=== PATIENT | female | born 1975 | race Caucasian/White ===

== ENCOUNTER 2016-10-23 22:36 | Emergency (ER) | payer MEDICAID ==
[2016-10-23] MEDS ORDERED: DEXAMETHASONE SOD PHOSPHATE 10MG/ML VIAL PO ONE (22:59)
[2016-10-23] MEDS ORDERED: FAMOTIDINE 20MG TABLET PO ONE (23:03)
--- NOTE | 2016-10-23 23:04 | Emergency Department Record ---
History of Present Illness - General Chief complaint: Allergic Reaction Stated complaint: ALLERGIC REACTION Time Seen by Provider: 10/23/16 22:59 Source: Patient Mode of Arrival: Ambulatory Limitations: No limitations - History of Present Illness Initial Comments: 41 yo female presents to ED with a CC of a possible allergic reaction to her chest and back after using a newer perfume 2 days ago. Patient reports itching/ burning rash to the chest and back, denies throat swelling, wheezing, or difficulty breathing. Patient denies health problems at her baseline. MD Complaint: Allergic reaction Onset/Timin -: Days(s) Exposure: Other (perfume) Symptoms: Itching, Rash Severity: Moderate Treatment Prior to Arrival: Benadryl Previous Allergy History: Other - Related Data Home Medications Medication Instructions Recorded Confirmed Last Taken Hydrocodone/Acetaminophen [[place] 1 tab PO Q8H PRN 10/23/16 10/23/16 10/23/16 10mg/325mg] Ibuprofen [Motrin] 800 mg PO Q8H PRN 10/23/16 10/23/16 10/23/16 Previous Rx's Medication Instructions Recorded Dexamethasone Sod Phos 10Mg/ml 10 mg PO DAILY #4 vial 10/23/16 [Decadron] Famotidine [Pepcid] 40 mg PO DAILY #5 tablet 10/23/16 Allergies Allergy/AdvReac Type Severity Reaction Status Date / Time prednisone [PREDNISONE] Allergy Unknown HIVES Verified 02/24/15 12:45 Review of Systems Constitutional: Denies: Chills, Fever, Malaise, Night sweats Eyes: Denies: Eye discharge, Eye pain ENT: Denies: Congestion, Ear pain, Epistaxis Respiratory: Denies: Cough, Dyspnea Cardiovascular: Denies: Chest pain, Dyspnea on exertion, Palpitations Endocrine: Denies: Fatigue, Heat or cold intolerance Gastrointestinal: Denies: Abdominal pain, Nausea, Vomiting Genitourinary: Denies: Incontinence, Retention Musculoskeletal: Denies: Arthralgia, Back pain, Gout, Joint swelling Skin: Reports: Pruritus, Rash. Denies: Bruising, Change in color, Change in hair/nails Neurological: Denies: Abnormal gait, Confusion, Headache, Seizure Psychiatric: Denies: Anxiety Hematological/Lymphatic: Denies: Anemia, Blood Clots Past Medical History - SOCIAL HISTORY Smoking Status: Current every day smoker - RESPIRATORY Hx Respiratory Disorders: No - CARDIOVASCULAR Hx Cardio Disorders: No - NEURO Hx Neuro Disorders: Yes Hx of Migraines: Yes (monthly sleep and benadryl and motrin) - GI Hx GI Disorders: Yes Hx Irritable Bowel: Yes (takes no meds) - Hx Genitourinary Disorders: No - ENDOCRINE Hx Endocrine Disorders: No Comment:: sj - MUSCULOSKELETAL Hx Musculoskeletal Disorders: Yes Hx Arthritis: Yes (osteoarthritis) Hx Fibromyalgia: Yes (dr herman but has not seen in a few yrs) Comment:: pain left knee, Sojourens Syndrome - PSYCH Hx Psych Problems: Yes - HEMATOLOGY/ONCOLOGY Hx Hematology/Oncology Disorders: No Family Medical History Hx Anxiety: Mother Hx Cancer: Grandparents Hx Dementia: Father Hx Depression: Mother Hx Diabetes: Father, Mother, Grandparents Hx Heart Disease: Grandparents Hx HTN: Father, Mother Hx Seizures: Brother/Sister *Seizure Comment: brother has epilepsy Hx Stroke: Grandparents Physical Exam - General General Appearance: Alert, Oriented x3, Cooperative, No acute distress Limitations: No limitations - Head Head exam: Atraumatic, Normocephalic, Normal inspection Head exam detail: negative: Abrasion, Contusion, Vega's sign, General tenderness, Hematoma, Laceration - Eye Eye exam: Normal appearance. negative: Conjunctival injection, Periorbital swelling, Periorbital tenderness, Scleral icterus - ENT Ear exam: negative: Auricular hematoma, Auricular trauma Nasal Exam: negative: Active bleeding, Discharge, Dried blood, Foreign body Mouth exam: negative: Drooling, Laceration, Muffled voice, Tongue elevation Throat exam: negative: Tonsillar erythema, Tonsillomegaly, R peritonsillar mass , L peritonsillar mass - Neck Neck exam: Normal inspection. negative: Lymphadenopathy, Meningismus, Tenderness - Respiratory Respiratory exam: Normal lung sounds bilaterally. negative: Rales, Respiratory distress, Rhonchi - Cardiovascular Cardiovascular Exam: Regular rate, Normal rhythm, Normal heart sounds - GI/Abdominal GI/Abdominal exam: Soft. negative: Rebound, Rigid, Tenderness - Rectal Rectal exam: Deferred - exam: Deferred - Extremities Extremities exam: Normal inspection. negative: Calf tenderness, Pedal edema - Back Back exam: Denies: CVA tenderness (R), CVA tenderness (L) - Neurological Neurological exam: Alert, Normal gait, Oriented X3 - Psychiatric Psychiatric exam: Normal affect, Normal mood - Skin Skin exam: Erythema, Rash, Urticaria Type of lesion: Rash Distribution of rash: Back, Chest Description of rash: Erythematous, Urticarial Course - Reevaluation(s) Reevaluation #1: 10/23/16 23:09 Patient reports previous reaction to Prednisone, but has tolerated cortisone well previously, will trial Decadron in addition to Pepcid for her allergic symptoms. Patient has no difficulty breathing or throat welling on examination. Patient appears stable for discharge at this time. Disposition Disposition: Discharge Clinical Impression: Contact dermatitis Qualifiers: Contact dermatitis type: allergic Contact dermatitis trigger: cosmetics Qualified Code(s): L23.2 - Allergic contact dermatitis due to cosmetics Disposition: Home, Self-Care Condition: (2) Stable Instructions: Urticaria (ED) Additional Instructions: Return to ED if your symptoms worsen or if you have any concerns. Decadron and Pepcid as directed. Follow-up with your family doctor in 3-5 days as directed. Prescriptions: Dexamethasone Sod Phos 10Mg/ml [Decadron] 10 mg PO DAILY #4 vial Famotidine [Pepcid] 40 mg PO DAILY #5 tablet Forms: Patient Portal Access Time of Disposition: 23:03
[2016-10-23] MEDS ORDERED: ONDANSETRON 4 MG ODT TABLET SL ONE (23:36)
[2016-10-24] MEDS ORDERED: FAMOTIDINE 20MG TABLET PO SCH (10:00)
== END 2016-10-24 00:03 | disposition home or self-care (01) ==
LOC: ER 22:36
DX: L23.2 Allergic contact dermatitis due to cosmetics (principal)
CPT/HCPCS: 99282